=== PATIENT | male | born 1955 | race Caucasian/White ===

== ENCOUNTER 2023-10-04 18:09 | Emergency (ER) | payer MEDICARE, SELFPAY ==
[2023-10-04 18:10] VITALS: BMI 38.7
[2023-10-04 18:14] VITALS: BP 137/88
[2023-10-04 18:40] LABS: % Basophils 0.1 % (0-2); % Eosinophils 0.9 % (0-6); % Immature Granulocytes 0.1 % (0-0.5); % Lymphocytes 22.8 % (20.5-51.1); % Monocytes 5.7 % (1.7-9.3); % Neutrophils 70.4 % (42.2-75.2); Absolute Eosinophils 0.1 10^3/uL (0-0.7); Absolute Lymphocytes 1.6 10^3/uL (1.2-3.4); Absolute Monocytes 0.4 10^3/uL (0.1-0.6); Hemoglobin 14.9 g/dL (13.0-18.0); Mean Corp Hgb Conc. 36.3 g/dL (33.0-37.0); Mean Corpuscular Hgb 29.7 pg (27.0-31.0); Mean Corpuscular Volume 81.7 fL (80.0-94.0); Mean Platelet Volume 9.7 fL (7.4-10.4); Nucleated Red Blood Cells % 0 % (-); Platelet Count 190 10^3/uL (130-400); Red Blood Cell Count 5.02 10^6/uL (4.70-6.10); Red Cell Dist. Width 12.4 % (11.5-14.5)
[2023-10-04 19:03] LABS: Troponin I < 0.012 ng/ml
[2023-10-04 19:06] LABS: ALT (SGPT) 53 U/L (0-50); AST (SGOT) 37 U/L (17-59); Albumin 4.7 g/dl (3.5-5.0); Alkaline Phosphatase 92 U/L (38-126); Blood Urea Nitrogen 18 mg/dl (9-20); Calcium 9.6 mg/dl (8.4-10.2); Carbon Dioxide 22 mmol/L (22-30); Chloride 105 mmol/L (98-107); Glucose 166 mg/dl (70-99); Potassium 4.5 mmol/L (3.5-5.1); Sodium 139 mmol/L (135-145); Total Bilirubin 0.8 mg/dl (0.2-1.3); Total Protein 7.4 g/dl (6.3-8.2); eGFR > 60.00
[2023-10-04 20:00] VITALS: BP 101/71
[2023-10-04 20:01] VITALS: BP 101/71
--- NOTE | 2023-10-04 20:20 | ED.GENMED ---
History of Present Illness
General
Chief Complaint: Breathing Problem
Source: patient
Time Seen by Provider: 10/04/23 20:11
History of Present Illness
History of Present Illness:
68-year-old male presents to the emergency room complaining of having a sense of dyspnea and feeling dizzy. Patient states that he tested positive for COVID about 2 weeks ago. He was having cough, body aches, nausea and vomiting. Fortunately his
symptoms did improve and he had a negative test yesterday. However his sense of dyspnea has not gone away. He notes that he gets dizzy when he bends over.
Past History
Past History
ED Past Medical History: Hypercholesterolemia and NIDDM
ED Past Surgical History: Cholecystectomy and Other (Lipoma removed, Rectal fissure repair)
Social History
Tobacco: Former smoker
Alcohol: None
Personal:
Living: with family
Phy Exam
Physical Exam
Physical Exam:
General: Awake, Alert, Oriented X3. No acute distress, occasional cough
Vitals: unremarkable
Head: Atraumatic
Eyes: Pupils equal, EOMI
Throat: Airway intact, no exudates
Neck: Trachea midline
Lungs: Clear and equal b/l
Heart: Regular rate, no murmurs
Abd: Soft, Nontender, No pulsatile mass
Neuro: Nonfocal
Skin: Warm, dry, no rash
Extremities: pulses equal b/l, no edema
Scores
Heart Failure Risk
Heart Failure Risk Score: Not Applicable
Course
Orders/Labs/Results
Orders:
Orders
10/04/23 18:18
Electrocardiogram (*1) Urgent
Reason for Study: Shortness of Breath
10/04/23 18:19
EKG- Treatment ONCE
CXR2 [CR Chest - 2 Views ] Urgent
Comment:
Reason For Exam: SOB
10/04/23 18:30
CMP [Comprehensive Metabolic Panel] Urgent
Complete Blood Count/With Diff Urgent
Troponin I Urgent
10/04/23 20:20
0.9% Sodium Chloride 500 ml [Nss] 500 ml IV BOLUS
10/04/23 20:33
D-Dimer Urgent
Abnormal Lab Results
10/04/23
18:30
Glucose 166 H mg/dl
(70-99)
ALT 53 H U/L
(0-50)
10/04/23 18:30
10/04/23 18:30
Vital Signs
Initial and Last Documented VS:
Initial Vital Signs
Temp Pulse Resp BP Pulse Ox
98.5 F 109 18 137/88 97
10/04/23 18:14 10/04/23 18:14 10/04/23 18:14 10/04/23 18:14 10/04/23 18:14
Last Documented Vital Signs
Temp Pulse Resp BP Pulse Ox
98.5 F 80 23 103/57 97
10/04/23 18:14 10/04/23 21:00 10/04/23 21:00 10/04/23 21:00 10/04/23 20:00
MDM/Problems Addressed
Differential Diagnosis Includes:
COVID pneumonitis, PE, secondary bacterial pneumonia
MDM/Problems Addressed:
Patient presents complaining of dyspnea and fatigue. Vital signs are normal. Labs are unremarkable. D-dimer is normal. Chest x-ray shows no acute disease. Suspect patient has residual symptoms from COVID but there is no evidence of an unstable
process requiring emergent treatment or hospitalization. Patient stable for discharge home.
Chronic conditions affecting care: DM
*Radiology
Radiology exam reviewed: preliminary read by ED provider (I personally reviewed the patient's chest x-ray and see no acute disease) and radiology read reviewed
*Pulse Oximetry
Patient hypoxic: no
*EKG
Heart Rate: 102
Rate: tachycardiac
Rhythm: sinus tachycardia
Interval: normal interval
QRS Pattern: normal QRS
Ischemia: no ischemia
*Greenhouse Transplanter Interpretation
Rate: tachycardiac
Heart Rate: 102
Rhythm: sinus tachycardia
*Critical Care Note
Total Time (30-74mins, 75-104mins- exclusive of procedures): Not Applicable
ED Attending Note
-
Portions of this chart may have been created with voice recognition software.� Occasional wrong word or��sound alike� substitutions may have occurred due to the inherent limitations of voice recognition software.
Discharge Plan
Departure
Patient Disposition: Home (Routine Discharge)
Date of Disposition: 10/04/23
Time of Disposition: 21:44
Patient with high blood pressure during this ER visit?: No
Condition: Good
Discharge Problem:
Dyspnea, Nausea & vomiting
Instructions: Shortness of breath, Nausea and vomiting in adults
Prescriptions:
New
ondansetron 4 mg tablet,disintegrating
4 mg PO TID PRN (Reason: nausea and vomiting) Qty: 12 0RF
No Action
atorvastatin 40 mg Tablet
40 mg PO DAILY
metformin 1,000 mg Tablet
1,000 mg PO BID
prednisone 20 mg tablet
40 mg PO DAILY Qty: 8 0RF
Referrals:
Cynthia Mora CRNP [Family Provider] -
Activity Restrictions/Additional Instructions:
Your testing here in the emergency room has all been normal. I suspect your symptoms are related to recovering from COVID. Your chest x-ray does not show any abnormalities. Your oxygen level here is normal. From an emergency room standpoint we
can reassure you that there is no sign of any unstable process. We will send a prescription for Zofran for nausea.
Interventions
Interventions:
*General Assessment Last Done: 10/04/23 18:14
*ED COVID-19 Vaccine History Last Done: 10/04/23 18:14
*Nursing Disposition Last Done: 10/04/23 22:23
ED- Cardiac Assessment Last Done: 10/04/23 21:26
ED- Pulmonary Assessment Last Done: 10/04/23 21:26
Discharge Date and Time
Discharge Date/Time: 10/04/23 22:24
Print Language: BENGALI
[2023-10-04] MEDS: NSS 500 IV (20:33)
[2023-10-04 20:53] LABS: D-Dimer 0.39 ug/mlFEU (0.00-0.50)
[2023-10-04 21:00] VITALS: BP 103/57
== END 2023-10-04 22:24 | disposition home or self-care (01) ==
LOC: EMR 18:09
PROVIDERS: Emergency Medicine; EMERGENCY PHYSICIAN Emergency Medicine; FAMILY PHYSICIAN Nurse Practitioner Adult Health
DX: R06.02 Shortness of breath (principal); R42 Dizziness and giddiness; R11.2 Nausea with vomiting, unspecified; E11.9 Type 2 diabetes mellitus without complications; R53.83 Other fatigue
CPT/HCPCS: 99285; 71046; 80053; 84484; 85025; 85379; 93005

== ENCOUNTER → 2023-10-14 11:05 | Outpatient (REF) | payer MEDICARE, SELFPAY | LOC: RAD 11:05 | PROVIDERS: ATTENDING PHYSICIAN Registered Nurse | DX: R05.1 Acute cough (principal); U07.1 COVID-19 | CPT/HCPCS: 71046 ==

== ENCOUNTER 2024-01-21 14:50 | Inpatient (IN) | payer MEDICARE, SELFPAY ==
[2024-01-21 11:33] VITALS: BP 145/85
[2024-01-21 11:53] LABS: Urine Albumin Trace (Neg - Trace); Urine Bilirubin 1+ (Negative); Urine Character Clear (Clear); Urine Color Yellow; Urine Glucose Negative (Negative); Urine Ketone Negative (Negative); Urine Leukocyte Trace (Negative); Urine Nitrite Negative (Negative); Urine Occult Blood 1+ (Negative); Urine Urobilinogen Negative (Neg - 1+)
[2024-01-21 12:00] VITALS: BP 108/39
[2024-01-21 12:07] LABS: Urine Bacteria Few (Negative); Urine Mucus Few; Urine Squamous Cell 0-2 /LPF (Few); Urine White Cell 0-2 /HPF (0-5)
[2024-01-21 12:16] VITALS: BMI 38.7
[2024-01-21] MEDS: NSS 1000 IV ×3 (12:36→16:08)
[2024-01-21] MEDS: TYLENOL 650 MG PO (12:38)
[2024-01-21 13:00] LABS: % Basophils 0.2 % (0-2); % Eosinophils 0.1 % (0-6); % Immature Granulocytes 0.4 % (0-0.5); % Lymphocytes 3.6 % (20.5-51.1); % Monocytes 3.7 % (1.7-9.3); Absolute Lymphocytes 0.4 10^3/uL (1.2-3.4); Absolute Monocytes 0.4 10^3/uL (0.1-0.6); Absolute Neutrophils 9.4 10^3/uL (1.4-6.5); Hematocrit 40.7 % (39.0-52.0); Hemoglobin 14.5 g/dL (13.0-18.0); Mean Corp Hgb Conc. 35.6 g/dL (33.0-37.0); Mean Corpuscular Hgb 29.4 pg (27.0-31.0); Mean Corpuscular Volume 82.6 fL (80.0-94.0); Mean Platelet Volume 10.2 fL (7.4-10.4); Nucleated Red Blood Cells % 0 % (-); Platelet Count 158 10^3/uL (130-400); Red Blood Cell Count 4.93 10^6/uL (4.70-6.10); Red Cell Dist. Width 12.4 % (11.5-14.5); White Blood Cell Count 10.2 10^3/uL (4.8-10.8)
[2024-01-21 13:11] LABS: ALT (SGPT) 55 U/L (0-50); AST (SGOT) 65 U/L (17-59); Albumin 4.4 g/dl (3.5-5.0); Alkaline Phosphatase 95 U/L (38-126); Blood Urea Nitrogen 15 mg/dl (9-20); Calcium 9.2 mg/dl (8.4-10.2); Carbon Dioxide 25 mmol/L (22-30); Chloride 97 mmol/L (98-107); Estimated Creatinine Clearance 106 ml/min; Glucose 191 mg/dl (70-99); Lactic Acid 1.4 mmol/L (0.7-2.0); Potassium 4.9 mmol/L (3.5-5.1); Sodium 135 mmol/L (135-145); Total Bilirubin 1.3 mg/dl (0.2-1.3); Total Protein 7.1 g/dl (6.3-8.2); eGFR > 60.00
[2024-01-21 13:17] LABS: COVID-19 Antigen Negative (Negative)
[2024-01-21 14:00] VITALS: BP 111/65
--- NOTE | 2024-01-21 14:27 | ED.GENMED ---
History of Present Illness
<DO Shira Martinez Last Filed: 01/21/24 14:28>
General
Chief Complaint: Male Genito-Urinary Symptoms
Time Seen by Provider: 01/21/24 12:25
<Dennis Issa PA-C - Last Filed: 01/21/24 14:32>
General
Source: patient
Exam Limitations: none
History of Present Illness
History of Present Illness:
68-year-old oun-laxicko-eyrqfyhpc diabetic presents with several days worth of dysuria hematuria and now fever. Thought to have a UTI at the urgent care several days ago. He was initially placed on doxycycline then switched to Bactrim. Has been
on antibiotics for more than 48 hours with persistent symptoms. His now notes he is more fatigued and confused. No chest pain. No other complaints at this time
Past History
<DO Shira Martinez Last Filed: 01/21/24 14:28>
Past History
ED Past Medical History: Hypercholesterolemia and NIDDM
ED Past Surgical History: Cholecystectomy and Other (Lipoma removed, Rectal fissure repair)
Social History
Tobacco: Former smoker
Alcohol: None
Personal:
Living: with family
Phy Exam
<Dennis Issa PA-C - Last Filed: 01/21/24 14:32>
Physical Exam
Physical Exam:
General: Obese male no acute respiratory distress
HEENT: Normocephalic atraumatic
Heart: Tachycardic but regular
Lungs: Clear no wheeze
Abdomen soft tender to the suprapubic region. No guarding rebound normal bowel sounds
Extremities: No cyanosis or edema
: Warm no rash
Sepsis
<DO Shira Martinez Last Filed: 01/21/24 14:28>
Sepsis Screen
Sepsis Screen: Possible Sepsis
Date: 01/21/24
Time: 14:27
<Dennis Issa PA-C - Last Filed: 01/21/24 14:32>
Sepsis Screening
Sepsis Assessment: Sepsis
Sepsis Screen
Sepsis Screen: Sepsis
Date: 01/21/24
Time: 14:32
Course
<Hernandez Joseph DO - Last Filed: 01/21/24 14:28>
Orders/Labs/Results
Orders:
Orders
01/21/24 11:45
Urinalysis Reflex To Culture Urgent
Date Specimen was Collected: 01/21/24
Time Specimen was Collected: 11:41
Urine Microscopic Reflex Cult Urgent
01/21/24 12:32
CT Abd/pel Without Iv Or Oral Urgent
Comment:
Reason For Exam: hematuria
0.9% Sodium Chloride 1000 ml [Nss] 1,000 ml IV BOLUS
Acetaminophen [Tylenol] 650 mg PO NOW STA
01/21/24 12:40
COVID-19 Antigen Urgent
Source: Nasal Swab
Complete Blood Count/With Diff Urgent
Comprehensive Metabolic Panel Urgent
Lactic Acid Q4H
Comment: CANCEL 2nd LACTIC ACID IF 1st LACTIC ACID IS LESS THAN 2
Blood Culture Urgent
KACI Source: Blood/Venous
Specimen Description:
Influenza A+B Rapid Molecular Urgent
KACI Source: Nasal Swab
Specimen Description:
01/21/24 14:17
CefTRIAXone [Rocephin] 1,000 mg IV NOW STA
01/21/24 14:23
Blood Culture Urgent
KACI Source: Blood/Venous
Specimen Description:
01/21/24 16:45
Lactic Acid Q4H
Comment: CANCEL 2nd LACTIC ACID IF 1st LACTIC ACID IS LESS THAN 2
Abnormal Lab Results
01/21/24 01/21/24
11:45 12:40
Absolute Neuts (auto) 9.4 H 10^3/uL
(1.4-6.5)
Absolute Lymphs (auto) 0.4 L 10^3/uL
(1.2-3.4)
Neutrophils % 92.0 H %
(42.2-75.2)
Lymphocytes % 3.6 L %
(20.5-51.1)
Chloride 97 L mmol/L
(98-107)
Glucose 191 H mg/dl
(70-99)
AST 65 H U/L
(17-59)
ALT 55 H U/L
(0-50)
Ur Occult Blood Reflex 1+ A
(Negative)
Urine Bilirubin 1+ A
(Negative)
Leukocyte Esterase Rfl Trace A
(Negative)
Urine RBC 3-6 A /HPF
(0-2)
Urine Bacteria (Reflex) Few A
(Negative)
01/21/24 12:40
01/21/24 12:40
Vital Signs
Initial and Last Documented VS:
Initial Vital Signs
Temp Pulse Resp BP Pulse Ox
101.6 F H 115 16 145/85 98
01/21/24 11:33 01/21/24 11:33 01/21/24 11:33 01/21/24 11:33 01/21/24 11:33
Last Documented Vital Signs
Temp Pulse Resp BP Pulse Ox
101.6 F H 107 22 108/39 95
01/21/24 11:33 01/21/24 12:00 01/21/24 12:00 01/21/24 12:00 01/21/24 12:18
Rianalt;Dennis Issa PA-C - Last Filed: 01/21/24 14:32>
Orders/Labs/Results
Orders:
Orders
01/21/24 11:45
Urinalysis Reflex To Culture Urgent
Date Specimen was Collected: 01/21/24
Time Specimen was Collected: 11:41
Urine Microscopic Reflex Cult Urgent
01/21/24 12:32
CT Abd/pel Without Iv Or Oral Urgent
Comment:
Reason For Exam: hematuria
0.9% Sodium Chloride 1000 ml [Nss] 1,000 ml IV BOLUS
Acetaminophen [Tylenol] 650 mg PO NOW STA
01/21/24 12:40
COVID-19 Antigen Urgent
Source: Nasal Swab
Complete Blood Count/With Diff Urgent
Comprehensive Metabolic Panel Urgent
Lactic Acid Q4H
Comment: CANCEL 2nd LACTIC ACID IF 1st LACTIC ACID IS LESS THAN 2
Blood Culture Urgent
KACI Source: Blood/Venous
Specimen Description:
Influenza A+B Rapid Molecular Urgent
KACI Source: Nasal Swab
Specimen Description:
01/21/24 14:17
CefTRIAXone [Rocephin] 1,000 mg IV NOW STA
01/21/24 14:23
Blood Culture Urgent
KACI Source: Blood/Venous
Specimen Description:
01/21/24 16:45
Lactic Acid Q4H
Comment: CANCEL 2nd LACTIC ACID IF 1st LACTIC ACID IS LESS THAN 2
Abnormal Lab Results
01/21/24 01/21/24
11:45 12:40
Absolute Neuts (auto) 9.4 H 10^3/uL
(1.4-6.5)
Absolute Lymphs (auto) 0.4 L 10^3/uL
(1.2-3.4)
Neutrophils % 92.0 H %
(42.2-75.2)
Lymphocytes % 3.6 L %
(20.5-51.1)
Chloride 97 L mmol/L
(98-107)
Glucose 191 H mg/dl
(70-99)
AST 65 H U/L
(17-59)
ALT 55 H U/L
(0-50)
Ur Occult Blood Reflex 1+ A
(Negative)
Urine Bilirubin 1+ A
(Negative)
Leukocyte Esterase Rfl Trace A
(Negative)
Urine RBC 3-6 A /HPF
(0-2)
Urine Bacteria (Reflex) Few A
(Negative)
01/21/24 12:40
01/21/24 12:40
Vital Signs
Initial and Last Documented VS:
Initial Vital Signs
Temp Pulse Resp BP Pulse Ox
101.6 F H 115 16 145/85 98
01/21/24 11:33 01/21/24 11:33 01/21/24 11:33 01/21/24 11:33 01/21/24 11:33
Last Documented Vital Signs
Temp Pulse Resp BP Pulse Ox
101.6 F H 107 22 108/39 95
01/21/24 11:33 01/21/24 12:00 01/21/24 12:00 01/21/24 12:00 01/21/24 12:18
<Dennis Issa PA-C - Last Filed: 01/21/24 14:32>
MDM/Problems Addressed
Differential Diagnosis Includes:
Fever with urinary symptoms. Consider UTI per cystitis with pyelonephritis versus kidney stone
Patient is a nni-qsqwrip-jxhusmlaa diabetic. He is febrile and tachycardic at triage and meet SIRS criteria. He was confused per his . Will check labs including lactic acid and blood cultures. Urinalysis culture pending. Ordered CT of the
abdomen as well to evaluate for stone.
<Dennis Issa PA-C - Last Filed: 01/21/24 14:32>
*Critical Care Note
Total Time (30-74mins, 75-104mins- exclusive of procedures): Not Applicable
<Dennis Issa PA-C - Last Filed: 01/21/24 14:32>
Update Note
Update Note:
CT shows no obvious acute finding. Labs reviewed. Concern for possible cystitis despite oral antibiotics for more than 48 hours in May gjt-wvrpqxx-qheslhpbj diabetic patient. He was given Tylenol here and fluids and started on Rocephin.
Discussed with emergency room attending. Admit for further evaluation
ED Attending Note
<Hernandez Joseph DO - Last Filed: 01/21/24 14:28>
ED Attending Note
Patient seen and examined by attending physician: Yes
I performed the substantive portion of visit, reviewed & personally made and approve the management plan that is documented in note by myself or NANCY.: Yes
I performed a history and physical exam of patient and discussed management with resident, I reviewed resident's note and agree with documented findings and plan of care.: Yes
ED Attending Note:
I evaluated patient at bedside. I spoke to the who tells me the patient was rather confused earlier. He is overall improved with Motrin however the patient does meet sepsis criteria. As he is a diabetic and given his age I recommend he stay
in the hospital even though so far there is no clear source of abnormality. White cells in the urine are relatively low however he was treated with 2 different antibiotics recently. He continues to have dysuria.
-
Portions of this chart may have been created with voice recognition software.� Occasional wrong word or��sound alike� substitutions may have occurred due to the inherent limitations of voice recognition software.
Discharge Plan
Departure
Patient Disposition: Admit
Date of Disposition: 01/21/24
Time of Disposition: 14:31
Admit to: Telemetry
Presentation/result/management discussed w/ accepting MD/DO: Hospitalist
Discharge Problem:
Cystitis, Fever
Prescriptions:
No Action
atorvastatin 40 mg Tablet
40 mg PO DAILY
metformin 1,000 mg Tablet
1,000 mg PO BID
prednisone 20 mg tablet
40 mg PO DAILY Qty: 8 0RF
ondansetron 4 mg tablet,disintegrating
4 mg PO TID PRN (Reason: nausea and vomiting) Qty: 12 0RF
Referrals:
Cynthia Mora CRNP [Family Provider] -
Interventions
Interventions:
*Risk Screen - Suicide Last Done: 01/21/24 11:33
*General Assessment Last Done: 01/21/24 11:33
ED- Fall Risk Assessment Last Done: 01/21/24 12:17
*ED COVID-19 Vaccine History Last Done: 01/21/24 11:33
ED-Male Genitourinary Assessment Last Done: 01/21/24 12:17
Discharge Date and Time
Print Language: VINCENTIAN
--- NOTE | 2024-01-21 14:45 | HPS.HSE ---
Family Physician
-
Family Physician: PASCALE Scruggs
Chief Complaint
-
urinary symptoms
History of Present Illness
68-year-old male past medical history of diabetes, hypercholesterolemia presenting with several days of burning with urination, frequent urination of small amounts and blood in the urine once and now with fever 101.6. Patient has been on
antibiotics for 2 days with persistent symptoms. He denies vomiting or diarrhea. He did have some wet cough today this is improved. He denies any shortness of breath, sore throat or runny nose.
He denies smoking or alcohol use.
Medical History
Past Medical History
Past Medical History: Reports Other (diabetes, hypercholesterolemia)
Past Surgical History: Reports Other (Cholecystectomy and Other (Lipoma removed, Rectal fissure repair))
Social History
Tobacco: Non-smoker
Alcohol: None
Drug: None
Family History
Family History: Not pertinent
Allergies / Home Medications
Allergies reflects when Allergies were last updated in [facility].
Home Medications with original date entered in [facility]
Allergy/Medication List:
Allergies
Allergy/AdvReac Type Severity Reaction Status Date / Time
azithromycin Allergy Hives Verified 01/21/24 11:36
Home Medications
cholecalciferol (vitamin D3) 50 mcg (2,000 unit) tablet (Vitamin D3) 100 mcg PO DAILY 01/21/24
dulaglutide 3 mg/0.5 mL subcutaneous pen injector (Trulicity) 3 mg SC SOUZA 01/21/24
ezetimibe 10 mg tablet (Zetia) 10 mg PO DAILY 01/21/24
lisinopril 2.5 mg tablet 2.5 mg PO DAILY 01/21/24
rosuvastatin 40 mg tablet (Crestor) 40 mg PO DAILY 01/21/24
sulfamethoxazole 800 mg-trimethoprim 160 mg tablet (Bactrim DS) 1 tab PO BID 01/21/24
Review of Systems
-
History Source: Patient
A 12 point ROS was completed and negative except as noted: Yes
Constitutional: Reports No Symptoms
EENT: Reports No Symptoms
Respiratory: Reports See HPI
Cardiac: Reports No Symptoms
Abdomen/GI: Reports See HPI
: Reports See HPI
Musculoskeletal: Reports No Symptoms
Skin: Reports No Symptoms
Neurological: Reports No Symptoms
Endocrine: Reports No Symptoms
Hematologic/Lymphatic: Reports No Symptoms
Psych: Reports No Symptoms
Physical Exam
Vital Signs
Vital Signs
Temp Pulse Resp BP Pulse Ox
101.6 F H 107 22 108/39 95
01/21/24 11:33 01/21/24 12:00 01/21/24 12:00 01/21/24 12:00 01/21/24 12:18
Physical Exam
General: Well Developed, Well Nourished and No Apparent Distress
HEENT: NormoCephalic, Moist mucous membranes and Atraumatic
Respiratory: Clear
Cardiac: S1/S2 and Regular Rhythm; No Murmur or Rub
GI: Soft, Non Distended, Normal Bowel Sounds and Tender (suprapubic ); No Organomegaly
Rectal: Deferred by Provider
Musculoskeletal: No Clubbing, No Cyanosis and No Edema
Skin: No Rash
Neuro: Nonfocal/grossly intact
Laboratory Results
-
01/21/24 12:40
01/21/24 12:40
Laboratory Results
Lactic Acid Cancelled 01/21/24 16:45
Total Bilirubin 1.3 mg/dl (0.2-1.3) 01/21/24 12:40
AST 65 U/L (17-59) H 01/21/24 12:40
ALT 55 U/L (0-50) H 01/21/24 12:40
Alkaline Phosphatase 95 U/L (38-126) 01/21/24 12:40
Data Reviewed
-
Lab Data: Labs Reviewed by me
Old Records: Reviewed
Impression/Plan
-
IMPRESSION:
PLAN:
# Sepsis (fever, tachycardia) secondary to urinary tract infection
-Urinalysis unremarkable however patient has been on antibiotics for 2 days, urine culture pending
-CT abdomen pelvis shows no acute abnormality
-Check blood culture
-IV fluids
-Ceftriaxone
# Acute cough
-COVID and influenza negative
-Check chest x-ray
# Mild transaminitis
-Continue to follow
Type 2 diabetes
-Normally on Trulicity
-Insulin sliding scale
Hypercholesterolemia
-Hold statin
-Continue Zetia
Essential hypertension
-Continue lisinopril
Full code
DVT prophylaxis�heparin
Diabetic Diet
[2024-01-21] MEDS: ROCEPHIN 1000 MG IV (14:46)
[2024-01-21 15:47] VITALS: BP 148/77; BMI 38.2
--- NOTE | 2024-01-21 16:48 | PTCARENOTE ---
Received patient from ED via stretcher. AAOx3, ambulated to bed. Assessed and oriented to room. Call [facility] in close reach. at bedside.
[2024-01-21 16:52] LABS: Glucose - Point of Care 129 mg/dl (70-99)
[2024-01-21] MEDS: NOVOLOG FLEXPEN-LOW RESISTANCE SC (16:56)
[2024-01-21] MEDS: HEPARIN 5000 UNITS SC (20:07)
[2024-01-21 21:13] LABS: Glucose - Point of Care 153 mg/dl (70-99)
[2024-01-21 23:46] VITALS: BP 125/58
[2024-01-22] MEDS: NSS 1000 IV ×2 (01:25→11:42)
[2024-01-22 07:23] LABS: Glucose - Point of Care 146 mg/dl (70-99)
[2024-01-22 07:30] VITALS: BP 152/89
[2024-01-22 07:47] LABS: % Basophils 0.2 % (0-2); % Eosinophils 0.5 % (0-6); % Immature Granulocytes 0.4 % (0-0.5); % Lymphocytes 11.1 % (20.5-51.1); % Monocytes 8.6 % (1.7-9.3); % Neutrophils 79.2 % (42.2-75.2); Absolute Lymphocytes 0.6 10^3/uL (1.2-3.4); Absolute Monocytes 0.5 10^3/uL (0.1-0.6); Absolute Neutrophils 4.4 10^3/uL (1.4-6.5); Hematocrit 34.9 % (39.0-52.0); Hemoglobin 12.3 g/dL (13.0-18.0); Mean Corp Hgb Conc. 35.2 g/dL (33.0-37.0); Mean Corpuscular Hgb 29.3 pg (27.0-31.0); Mean Corpuscular Volume 83.1 fL (80.0-94.0); Mean Platelet Volume 9.5 fL (7.4-10.4); Nucleated Red Blood Cells % 0 % (-); Platelet Count 142 10^3/uL (130-400); Red Cell Dist. Width 12.4 % (11.5-14.5); White Blood Cell Count 5.5 10^3/uL (4.8-10.8)
[2024-01-22 08:16] LABS: ALT (SGPT) 43 U/L (0-50); AST (SGOT) 33 U/L (17-59); Albumin 3.5 g/dl (3.5-5.0); Alkaline Phosphatase 86 U/L (38-126); Blood Urea Nitrogen 11 mg/dl (9-20); Calcium 8.2 mg/dl (8.4-10.2); Carbon Dioxide 23 mmol/L (22-30); Chloride 103 mmol/L (98-107); Estimated Creatinine Clearance 105 ml/min; Glucose 143 mg/dl (70-99); Potassium 4.1 mmol/L (3.5-5.1); Sodium 135 mmol/L (135-145); Total Bilirubin 0.9 mg/dl (0.2-1.3); eGFR > 60.00
[2024-01-22 08:29] LABS: Glycohemoglobin (HgbA1c) 6.6 % (4.0-5.6)
[2024-01-22] MEDS: NOVOLOG FLEXPEN-LOW RESISTANCE SC ×3 (08:45→18:08)
[2024-01-22] MEDS: VITAMIN D3 (cholecalciferol) 100 MCG PO (08:46)
[2024-01-22] MEDS: ZETIA 10 MG PO (08:46)
[2024-01-22] MEDS: HEPARIN 5000 UNITS SC (08:46)
[2024-01-22] MEDS: ZESTRIL 2.5 MG PO (08:47)
[2024-01-22 11:39] LABS: Glucose - Point of Care 147 mg/dl (70-99)
--- NOTE | 2024-01-22 11:59 | W.PN.HOSP.TC ---
Today's Communication/Plan
-
Stop IVF-encourage po
IV abx
Await culture data
ID eval
Assessment / Plan
Assessment / Plan
# Sepsis (fever, tachycardia) secondary to urinary tract infection suspected acute prostatitis
-Urinalysis unremarkable however patient has been on antibiotics for 2 days, urine culture pending
-CT abdomen pelvis however, performed w/o po or IV contrast-No evidence of renal or ureteral calculus.The urinary bladder is nondistended which limits evaluation.
-Check blood culture in lab
-tolerating po and can stop further IVF
-Ceftriaxone
-COVID and influenza negative
-CXR with low lung volume
-ID eval
# Mild transaminitis likely 2/2 sepsis
-Continue to follow.Resolved.
Type 2 diabetes
-Normally on Trulicity
-Insulin sliding scale
Hypercholesterolemia
-Hold statin
-Continue Zetia
Essential hypertension
-Continue lisinopril
Morbid obesity due to excess calories affects all aspects of medical care
Full code
DVT prophylaxis-lovenox
d/w with daughter over the phone in details
Anticipated Discharge: > 48 hours
Subjective/Interval History
-
Date of Service: January 22, 2024
states of dysuria
denies suprapubic pain
was febrile on admission
denies flank pain
no cough
no abd pain
no nausea or vomiting
Objective Data
-
Labs:
Laboratory Results
01/22/24
07:33
WBC 5.5
Hgb 12.3 L
Hct 34.9 L
Plt Count 142
Sodium 135
Potassium 4.1
Chloride 103
Carbon Dioxide 23
BUN 11
Creatinine 0.8
Glucose 143 H
Calcium 8.2 L
Total Bilirubin 0.9
AST 33
ALT 43
Alkaline Phosphatase 86
Vital Signs:
Vital Signs
Temp Pulse Resp BP Pulse Ox
99.3 F 101 20 152/89 96
01/22/24 07:30 01/22/24 07:30 01/22/24 07:30 01/22/24 07:30 01/22/24 07:30
I&O
01/21/24 01/22/24 01/23/24
06:59 06:59 06:59
Intake Total 1100 / 1100
Output Total 150 / 150
Balance 950 / 950
Physical Exam
-
General: Well Developed, No Apparent Distress and Morbidly Obese
HEENT: Normocephalic, Atraumatic and Moist Mucous Membranes
Respiratory: Clear to Auscultation
Cardiac: Regular Rhythm and S1/S2; Negative Murmur, Rub or Gallop
GI: Soft, Nontender, Nondistended and Normal Bowel Sounds; Negative Organomegaly
Rectal: Deferred by Provider
Genito-urinary: No Costovertebral Tender
Musculoskeletal: No Clubbing, No Cyanosis and No Edema
Skin: Negative Rash
Neuro: Awake, Alert, Oriented, AO x 3, No Motor Deficits and Nonfocal/Grossly Intact
Psych: Calm
Data Reviewed
-
Total Time Spent with Patient (in minutes): 58
[2024-01-22 15:05] VITALS: BP 140/75
--- NOTE | 2024-01-22 15:11 | CON.ID ---
Consultation
-
Date/Time Consultation Requested: 01/22/24 11:55
Date/Time Consultation Performed: 01/22/24 15:11
Requesting Provider: Dr Sorto
Performing Provider: Dr Al
Reason for Consultation: dysuria
Chief Complaint / Past History
Chief Complaint
dysuria
History of Present Illness
Mr Castanon is a 68 year old male with history of DM2, class II obesity presenting to the ER for about four days of dysuria, frequency, hematuria and a fever to 101.6. No vomiting or diarrhea. He went to Urgent care ([facility]) where his
daughter tells me he was prescribed an antibiotic for 'generaly infections' and a urine culture was done; he was prescribed doxycycline which he took for about two days without improvement he then called his PCP monday night and was prescribed
bactrim but report no improvement after two doses and presented here for further evaluation. He is sexually active with his and they are monogamous. Reports no prior UTIs. No procedures on the prostate.
Since arrival here Tmax is 101.6, bp stable, wbc initially 10 now 5.5 hgb 12.3, plt 142, L shift present on admission now improving to 79.2, cr 0.8, t bili initially 1.3 now 0.9, ast initially 65 now 33, alt initially 55 now 43, alk phos 86, UA no
pyuria and few bacteria, 3-6 rbc/hpf, covid ag negative, QTc is 443, blood cultures x2 were sent and are no growth to date, c diff ag/toxin negative, CT a/p without IV or oral therapy: no renal calculi patient is currently on ceftriaxone, reports
improved dysuria. ID is consulted for assistance with management.
Past History
Additional Past Medical History:
diabetes, hypercholesterolemia
Additional Past Surgical History:
Cholecystectomy and Other (Lipoma removed, Rectal fissure repair
Allergy History:
azithromycin Allergy (Verified 01/21/24 11:36)
Hives
Medications Reviewed: Yes
Social History
Tobacco: Non-Smoker
Alcohol: None
Drug: None
Family History
Family History: Not Pertinent
Review of Systems
Review of Systems
General: Fever
All systems: All other systems were reviewed and were negative
Vital Signs
Temp Pulse Resp BP Pulse Ox
99.2 F 90 20 140/75 95
01/22/24 15:05 01/22/24 15:05 01/22/24 15:05 01/22/24 15:05 01/22/24 15:05
Physical Exam
Physical Exam
Constitutional: No Acute Distress
Cardiovascular: Regular Rate and S1/S2; Negative Murmur or Rub
Pulmonary: Clear and Symmetric; Negative Wheezes, Rales or Rhonchi
Gastrointestinal: Soft, Non Tender, Non Distended and Normal Bowel Sounds
Genito-Urinary: Negative Suprapubic Tenderness or CVA Tenderness
Skin: Warm and Dry; Negative Rash or Jaundice
Lab / Diagnostic Study Results
01/22/24 07:33
01/22/24 07:33
Abs Immat Gran (auto) 0.0 10^3/uL (0-0.05) 01/22/24 07:33
Absolute Neuts (auto) 4.4 10^3/uL (1.4-6.5) 01/22/24 07:33
Absolute Lymphs (auto) 0.6 10^3/uL (1.2-3.4) L 01/22/24 07:33
Absolute Monos (auto) 0.5 10^3/uL (0.1-0.6) 01/22/24 07:33
Absolute Basos (auto) 0.0 10^3/uL (0-0.2) 01/22/24 07:33
Immature Gran % 0.4 % (0-0.5) 01/22/24 07:33
Neutrophils % 79.2 % (42.2-75.2) H 11/04/24 07:33
Lymphocytes % 11.1 % (20.5-51.1) L 01/22/24 07:33
Monocytes % 8.6 % (1.7-9.3) 01/22/24 07:33
Eosinophils % 0.5 % (0-6) 01/22/24 07:33
Basophils % 0.2 % (0-2) 01/22/24 07:33
Lactic Acid Cancelled 01/21/24 16:45
Ur Squamous Epith Cells 0-2 /LPF (Few) 01/21/24 11:45
ur wbc 0-2; and few bacteria
Microbiology Results
Micro:
01/21/24 14:51 Blood Culture - Preliminary
Blood/Venous No Growth in 24 hours- Final report to follow
01/21/24 12:40 Blood Culture - Preliminary
Blood/Venous No Growth in 24 hours- Final report to follow
01/22/24 11:34 C. difficile GDH Antigen & Toxins - Final
Feces/Stool Negative for toxigenic C.difficile
01/21/24 12:40 Influenza Types A & B (ISAAC) - Final
Nasal Swab Negative for Influenza A & B, NAAT
Negative results must be combined with clinical observations
and patient history.
Nucleic Acid Amplification test (NAAT)performed on the
[employer] NOW platform.
Assessment / Plan
Possible UTI
- monomagamous, no new sexual contacts
- symptoms improving post bactrim/ceftriaxone
- suspect urine culture may be negative due to recent use of bactrim. Pt reports he had an additional urine culture at [facility] and I have left a message with their office requesting a call back in order to get that urine culture.
- added on a urine culture, note that UA had no pyruia and few bacteria
- asking about discharge tomorrow to vote, restarting the bactrim for a 7 day course would be reasonable if he desires discharge. If negative our culture will likely be finalized tomorrow, if positive, we will likely have an ID but no
sensitivities. In that case I can follow up the culture and touch base with patient if needed.
[2024-01-22] MEDS: ROCEPHIN 1000 MG IV (16:38)
[2024-01-22] MEDS: STERILE WATER FOR INJECTION 10 ML IV (16:38)
[2024-01-22 16:53] LABS: Glucose - Point of Care 124 mg/dl (70-99)
[2024-01-22] MEDS: LOVENOX 40 MG SC (18:09)
[2024-01-22 21:21] LABS: Glucose - Point of Care 179 mg/dl (70-99)
[2024-01-22 23:14] VITALS: BP 121/61
[2024-01-23 07:34] LABS: Glucose - Point of Care 164 mg/dl (70-99)
[2024-01-23 07:35] VITALS: BP 127/73
[2024-01-23 07:37] LABS: Blood Urea Nitrogen 11 mg/dl (9-20); Calcium 8.8 mg/dl (8.4-10.2); Carbon Dioxide 25 mmol/L (22-30); Chloride 100 mmol/L (98-107); Estimated Creatinine Clearance 105 ml/min; Glucose 149 mg/dl (70-99); Sodium 137 mmol/L (135-145); eGFR > 60.00
[2024-01-23 07:39] LABS: % Basophils 0.2 % (0-2); % Eosinophils 1.4 % (0-6); % Immature Granulocytes 0.4 % (0-0.5); % Lymphocytes 17.4 % (20.5-51.1); % Monocytes 11.6 % (1.7-9.3); Absolute Eosinophils 0.1 10^3/uL (0-0.7); Absolute Lymphocytes 0.9 10^3/uL (1.2-3.4); Absolute Monocytes 0.6 10^3/uL (0.1-0.6); Absolute Neutrophils 3.5 10^3/uL (1.4-6.5); Hematocrit 35.7 % (39.0-52.0); Hemoglobin 12.6 g/dL (13.0-18.0); Mean Corp Hgb Conc. 35.3 g/dL (33.0-37.0); Mean Corpuscular Hgb 29.2 pg (27.0-31.0); Mean Corpuscular Volume 82.6 fL (80.0-94.0); Mean Platelet Volume 9.8 fL (7.4-10.4); Nucleated Red Blood Cells % 0 % (-); Platelet Count 159 10^3/uL (130-400); Red Blood Cell Count 4.32 10^6/uL (4.70-6.10); Red Cell Dist. Width 12.3 % (11.5-14.5)
[2024-01-23] MEDS: VITAMIN D3 (cholecalciferol) 100 MCG PO (08:28)
[2024-01-23] MEDS: ZETIA 10 MG PO (08:28)
[2024-01-23] MEDS: ZESTRIL 2.5 MG PO (08:28)
[2024-01-23] MEDS: NOVOLOG FLEXPEN-LOW RESISTANCE 1 UNITS SC (08:37)
--- NOTE | 2024-01-23 10:56 | W.PN.ID1 ---
Date of Service
Date of Service: January 23, 2024
Today's Communication
- asking about discharge to vote, restarting the bactrim for a 7 day course would be reasonable if he desires discharge. I can follow up the culture and touch base with patient if needed.
Assessment / Plan
Probable UTI
- monomagamous, no new sexual contacts
- symptoms improving post bactrim/ceftriaxone
- suspect urine culture from 01/20 here will likely be negative
- [facility] urine culture sent to [facility] 01/18 and with about 30K GNR - I asked my office to call lab to please ID the isolate
- low colony counts suggesting effective antibiotics,
- asking about discharge to vote, restarting the bactrim for a 7 day course would be reasonable if he desires discharge. I can follow up the culture and touch base with patient if needed.
- follow up with PCP
Chief Complaint
-: UTI
Subjective / Review of Systems
spoke with [facility] front counter clerk, his labs were sent to [facility] and not finalized in their system
patient eager for discharge
no events overnight
minimal residual dysuria at the end of the stream
Vital Signs / Physical Exam
Vital Signs
Vital Signs
Temp Pulse Resp BP Pulse Ox
98.3 F 84 20 127/73 96
01/23/24 07:35 01/23/24 08:28 01/23/24 07:35 01/23/24 08:28 01/23/24 07:35
Physical Exam
Constitutional: No Acute Distress
Cardiovascular: Regular Rate and S1/S2; Negative Murmur or Rub
Pulmonary: Clear and Symmetric; Negative Wheezes or Rales
Gastrointestinal: Soft, Non Tender, Non Distended and Normal Bowel Sounds
Genito-Urinary: Negative Suprapubic Tenderness
Skin: Warm and Dry; Negative Rash or Jaundice
Objective Data
Lab Data
Lab Results
01/23/24 06:46
01/23/24 06:46
Estimated Creat Clear 105 ml/min 01/23/24 06:46
Lactic Acid Cancelled 01/21/24 16:45
Total Bilirubin 0.9 mg/dl (0.2-1.3) 01/22/24 07:33
AST 33 U/L (17-59) 01/22/24 07:33
ALT 43 U/L (0-50) 01/22/24 07:33
Alkaline Phosphatase 86 U/L (38-126) 01/22/24 07:33
Most recent labs reviewed.
Micro Results:
01/21/24 11:45 Urine Culture - Preliminary
Urine
01/21/24 14:51 Blood Culture - Preliminary
Blood/Venous No Growth in 24 hours- Final report to follow
01/21/24 12:40 Blood Culture - Preliminary
Blood/Venous No Growth in 24 hours- Final report to follow
01/22/24 11:34 C. difficile GDH Antigen & Toxins - Final
Feces/Stool Negative for toxigenic C.difficile
01/21/24 12:40 Influenza Types A & B (ISAAC) - Final
Nasal Swab Negative for Influenza A & B, NAAT
Negative results must be combined with clinical observations
and patient history.
Nucleic Acid Amplification test (NAAT)performed on the
[employer] platform.
Care Review
Plan reviewed with: Physician (Dr Sorto - [place])
--- NOTE | 2024-01-23 11:04 | W.PN.HOSP.TC ---
Today's Communication/Plan
-
cont po bactrim
Assessment / Plan
Assessment / Plan
# Sepsis (fever, tachycardia) secondary to urinary tract infection suspected acute prostatitis
-Urinalysis unremarkable however patient has been on antibiotics for 2 days, urine culture pending
-CT abdomen pelvis however, performed w/o po or IV contrast-No evidence of renal or ureteral calculus.The urinary bladder is nondistended which limits evaluation.
-Check blood culture in lab -negative so far
-tolerating po and can stop further IVF
-Ceftriaxone
-COVID and influenza negative
-CXR with low lung volume
-Discussed with ID. Patient with improvement in symptomatology. Per infectious disease patient can be discharged and continued on Bactrim for additional 1 week. ID to follow-up on the urine culture. Patient agreeable for the plan. Patient
remains afebrile. WBC normal. Recommended patient to repeat UA after completion of antibiotics for resolution of infection. Patient states he already has prescription from PCP for repeat urine studies.
# Mild transaminitis likely 2/2 sepsis
-Continue to follow.Resolved.
Type 2 diabetes
-Normally on Trulicity
-Insulin sliding scale
Hypercholesterolemia
-restart statin
-Continue Zetia
Essential hypertension
-Continue lisinopril
Morbid obesity due to excess calories affects all aspects of medical care
Full code
DVT prophylaxis-lovenox
d/w with daughter over the phone in details on 01/22/24
More than 30 minutes spent in discharge including
Final examination of the patient
Summarizing hospital stay
Instructions for continuing care to all relevant caregivers
Preparation of discharge records, prescriptions, and referral forms
Total time spent (in minutes): 52
Anticipated Discharge: Today
Subjective/Interval History
-
Date of Service: January 23, 2024
states improvement in dysuria
tolerating diet
afebrile
Patient requesting to go home.
Objective Data
-
Labs:
Laboratory Results
01/23/24
06:46
WBC 5.0
Hgb 12.6 L
Hct 35.7 L
Plt Count 159
Sodium 137
Potassium 4.0
Chloride 100
Carbon Dioxide 25
BUN 11
Creatinine 0.8
Glucose 149 H
Calcium 8.8
Vital Signs:
Vital Signs
Temp Pulse Resp BP Pulse Ox
98.3 F 84 20 127/73 96
01/23/24 07:35 01/23/24 08:28 01/23/24 07:35 01/23/24 08:28 01/23/24 07:35
I&O
01/22/24 01/23/24 01/24/24
06:59 06:59 06:59
Intake Total 1100 / 1100 1760 / 1760
Output Total 150 / 150
Balance 950 / 950 1760 / 1760
Physical Exam
-
General: Well Developed, No Apparent Distress and Morbidly Obese
HEENT: Normocephalic, Atraumatic and Moist Mucous Membranes
Respiratory: Clear to Auscultation
Cardiac: Regular Rhythm and S1/S2; Negative Murmur, Rub or Gallop
GI: Soft, Nontender, Nondistended and Normal Bowel Sounds; Negative Organomegaly
Rectal: Deferred by Provider
Genito-urinary: No Costovertebral Tender
Musculoskeletal: No Clubbing, No Cyanosis and No Edema
Skin: Negative Rash
Neuro: Awake, Alert, Oriented, AO x 3, No Motor Deficits and Nonfocal/Grossly Intact
Psych: Calm
--- NOTE | 2024-01-23 11:22 | W.DCSUMMARY ---
Discharge Summary
Discharge Data
Date of Admission: 01/21/24
Date of Discharge: 01/23/24
-
Pending Results: No
Hospital Course
68 male past medical history of hypertension hyperlipidemia morbid obesity who is presenting from home with dysuria. Patient found to be septic suspected secondary to urinary tract infection. Patient went to urgent care prior to arrival to the
hospital and received doxycycline without much improvement after taking couple doses call primary doctor who recommended Bactrim. Patient took few doses of Bactrim and had dysuria persist and decided come to the ER. Patient was started on IV
ceftriaxone. COVID influenza was negative. Chest x-ray with low lung volume. Blood cultures were preliminary negative. Patient was insisting on going home. Urine culture was pending. Discussed with ID as patient with improvement symptomology
can be discharged and patient can continue taking Bactrim and complete course. Patient was recommended to have repeat urinalysis to follow-up on resolution of infection. Also recommended urology follow-up. Discussed with infectious disease who
will follow-up on the urine culture and will call patient if any abnormality noted.
Discharge Plan
-
Patient Disposition: Home (Routine Discharge)
Discharge Diagnosis/Procedures: Sepsis (fever, tachycardia) secondary to urinary tract infection
Condition: Fair
Diet: Low Fat and Diabetic, Carb Controlled
Activity: No restrictions
Driving Restrictions: As prior to admission
Others Tests: Repeat urinalysis with reflex to culture after completion of antibiotics via primary doctor
Referrals:
Cynthia Mora CRNP [Family Provider] - in less than 1 week
Aj Polanco MD [Active] - None
Prescriptions:
Continued
sulfamethoxazole-trimethoprim [Bactrim DS] 800-160 mg Tablet
1 tab PO BID
lisinopril 2.5 mg Tablet
2.5 mg PO DAILY
ezetimibe [Zetia] 10 mg Tablet
10 mg PO DAILY
rosuvastatin [Crestor] 40 mg Tablet
40 mg PO DAILY
cholecalciferol (vitamin D3) [Vitamin D3] 50 mcg (2,000 unit) Tablet
100 mcg PO DAILY
Trulicity 3 mg/0.5 mL Pen Injector
3 mg SC SOUZA
Discharge Orders:
Discharge Patient (As Directed); Ordered 01/23/24
Ordered By: Bryan Sorto
Discharge Date and Time
Print Language: GREENLANDIC
[2024-01-23 11:55] LABS: Glucose - Point of Care 139 mg/dl (70-99)
[2024-01-23] MEDS: NOVOLOG FLEXPEN-LOW RESISTANCE SC (13:24)
[2024-01-23] MEDS: STERILE WATER FOR INJECTION 10 ML IV (14:35)
[2024-01-23] MEDS: ROCEPHIN 1000 MG IV (14:35)
--- NOTE | 2024-01-23 15:08 | CM ---
CM met with Bright at bedside to complete IA. He was admitted to with sepsis due to UTI.
Bright lives with his in a 2 story home with a ramp to the front door with 2 entry steps. Bright is (I) amb and adls.
Plan: Discharge to home with no needs.
Pharmacy: [facility] in [place] on [facility]
PCP: Cynthia Mora
[2024-01-23 15:11] VITALS: BP 136/74
== END 2024-01-23 15:45 | disposition home or self-care (01) | DRG 872 ==
LOC: 4 EAST ACU 14:50
PROVIDERS: Physician Assistant; ADMITTING PHYSICIAN Hospitalist; ATTENDING PHYSICIAN Hospitalist; CONSULT PHYSICIAN Student in an Organized Health Care Education/Training Program; EMERGENCY PHYSICIAN Emergency Medicine; FAMILY PHYSICIAN Nurse Practitioner Adult Health
DX: A41.9 Sepsis, unspecified organism (principal); N41.0 Acute prostatitis; R31.9 Hematuria, unspecified; Z11.52 Encounter for screening for COVID-19; E66.812 Obesity, class 2; Z68.38 Body mass index [BMI] 38.0-38.9, adult; E11.9 Type 2 diabetes mellitus without complications; E78.00 Pure hypercholesterolemia, unspecified; I10 Essential (primary) hypertension; R74.01 Elevation of levels of liver transaminase levels
CPT/HCPCS: 71046; 74176; 80048; 80053; 81003; 81015; 82962; 83036; 83605; 85025; 87040; 87077; 87086; 87324; 87449; 87502; 87811; 96360; 99285